=== PATIENT | female | born 1980 | race Caucasian/White ===

== ENCOUNTER 2017-12-24 01:54 | Emergency (ER) | payer MEDICAID ==
[~2017-12-24] VITALS: Ht 172.7 cm; Wt 76.2 kg
[~2017-12-24 01:54] MED LIST: METH40TA2 PO
--- NOTE | 2017-12-24 02:20 | NUR ---
PT C/O PAIN ON URINATION, VAGINAL DISCHARGE W/ ODOR, AND ITCHING X2 WEEKS. PT STATES SHE BELIEVES SHE HAS AN STD. URINE SAMPLE PROVIDED.
--- NOTE | 2017-12-24 02:22 | NUR ---
DR YANETH ZIEGLER MD AT BEDSIDE FOR MSE.
[2017-12-24 02:33] LABS: *BILIRUBIN,URIN NEGATIVE (NEGATIVE); *BLOOD, URINE 1+ (NEGATIVE); *CLARITY,URINE CLEAR (CLEAR); *COLOR,URINE YELLOW (YELLOW); *KETONES,URINE NEGATIVE (NEGATIVE); *PROTEIN,URINE NEGATIVE (NEGATIVE); *UROBILINOGEN,URINE 0.2 E.U./dl (NORMAL); LEUKOCYTE ESTERASE ,URINE 1+ (NEGATIVE); NITRITE, URINE NEGATIVE (NEGATIVE); UGLUCOSE NEGATIVE (NEGATIVE)
[2017-12-24 02:53] LABS: *URINE HCG, QUAL NEGATIVE (NEGATIVE)
[2017-12-24 02:54] LABS: BACTERIA,URINE NONE SEEN /HPF (NONE SEEN); SQUAMOUS EPITHELIAL CELL,UR MODERATE /HPF (NONE SEEN); WBC,URINE 0-3 /HPF (0-3)
[2017-12-24] MEDS ORDERED: LIDOCAINE HCL 2% 20 ML VIAL ONE (02:58)
[2017-12-24] MEDS ORDERED: CEFTRIAXONE 500 MG VIAL ONE (02:58)
[2017-12-24] MEDS ORDERED: AZITHROMYCIN 250 MG TABLET ONE (02:58)
[2017-12-24] MEDS: CEFTRIAXONE 500 MG VIAL IM ONE (03:08)
[2017-12-24] MEDS: AZITHROMYCIN 250 MG TABLET PO ONE (03:08)
--- NOTE | 2017-12-24 03:09 | NUR ---
Patient discharged to home in stable conditon. Written and verbal after care instructions given. Patient verbalizes understanding of instructions. Pt took all personal belongings. No distress noted.
[2017-12-24 03:11] VITALS: BP 124/72
== END 2017-12-24 03:12 | disposition home or self-care (01) ==
LOC: ER 02:02
DX: N72 Inflammatory disease of cervix uteri (principal); N89.8 Other specified noninflammatory disorders of vagina; F15.10 Other stimulant abuse, uncomplicated; Z79.899 Other long term (current) drug therapy
CPT/HCPCS: 81001; 84703; 87070; 87210; 87491; 96372; 99284; A4663; J0696; J3490; Q0144

== ENCOUNTER 2019-03-03 02:17 | Emergency (ER) | payer MEDICAID ==
[~2019-03-03] VITALS: Ht 172.7 cm; Wt 72.6 kg
[2019-03-03 02:42] LABS: *BILIRUBIN,URIN NEGATIVE (NEGATIVE); *BLOOD, URINE 2+ (NEGATIVE); *CLARITY,URINE CLOUDY (CLEAR); *COLOR,URINE YELLOW (YELLOW); *KETONES,URINE NEGATIVE (NEGATIVE); *UROBILINOGEN,URINE 0.2 E.U./dl (NORMAL); LEUKOCYTE ESTERASE ,URINE 1+ (NEGATIVE); NITRITE, URINE NEGATIVE (NEGATIVE); UGLUCOSE NEGATIVE (NEGATIVE)
--- NOTE | 2019-03-03 02:43 | NUR ---
PATIENT WALKED INTO ER C/O DYSURIA THAT STARTED 2 DAYS AGO. PATIENT STATES PAIN HAS GOTTEN WORST IN THE LAST 24HRS.
[2019-03-03 02:55] LABS: *URINE HCG, QUAL NEGATIVE (NEGATIVE); BACTERIA,URINE MODERATE /HPF (NONE SEEN); SQUAMOUS EPITHELIAL CELL,UR FEW /HPF (NONE SEEN); WBC,URINE 80-100 /HPF (0-3)
[2019-03-03] MEDS ORDERED: NITROFURANTOIN/NITROFURAN MAC 100 MG CAPSULE PO ONE (03:00)
[2019-03-03] MEDS ORDERED: PHENAZOPYRIDINE HCL 100 MG TABLET PO ONE (03:00)
[2019-03-03 03:04] VITALS: BP 147/88
[2019-03-03] MEDS ORDERED: NITROFURANTOIN/NITROFURAN MAC 100 MG CAPSULE ONE (03:04)
[2019-03-03] MEDS ORDERED: PHENAZOPYRIDINE HCL 100 MG TABLET ONE (03:04)
--- NOTE | 2019-03-03 03:04 | NUR ---
Patient discharged to home in stable conditon. Written and verbal after care instructions given. Patient verbalizes understanding of instructions.
== END 2019-03-03 03:05 | disposition home or self-care (01) ==
LOC: ER 02:20
DX: N30.90 Cystitis, unspecified without hematuria (principal); Z71.6 Tobacco abuse counseling; F17.290 Nicotine dependence, other tobacco product, uncomplicated; F15.10 Other stimulant abuse, uncomplicated
CPT/HCPCS: 84703; 87077; 87086; A4663